=== PATIENT | female | born 2000 | race Caucasian/White ===

== ENCOUNTER 2018-04-30 09:32 | Emergency (ER) | payer SELFPAY ==
[2018-04-30 10:31] LABS: Urine Blood NEGATIVE (NEG); Urine Glucose NEGATIVE (NEG); Urine Protein NEGATIVE (NEG); Urine Specific Gravity 1.015 (1.005-1.030); Urine pH 7.5 (5.0-7.0)
--- NOTE | 2018-04-30 11:41 | RAD REPORT ---
EXAM DESCRIPTION: RAD - Lumbar Spine 3 Views - 04/30/2018 11:33 am CLINICAL HISTORY: Pain;Lower back pain Radiculopathy COMPARISON: No comparisons FINDINGS: Vertebral body heights appear maintained. No compression fracture noted. Disc spaces are m aintained. No spondylolysis or spondylolisthesis. IMPRESSION: Negative study.
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
== END 2018-04-30 12:01 | disposition home or self-care (01) ==
LOC: ER 09:32
DX: S39.012A Strain of muscle, fascia and tendon of lower back, initial encounter (principal); Y93.6A Activity, physical games generally associated with school recess, summer camp and children; Y93.89 Activity, other specified; Y92.9 Unspecified place or not applicable
CPT/HCPCS: 72100; 81003; 81025; 99282